=== PATIENT | male | born 1970 | race Two or more races ===

== ENCOUNTER 2021-12-15 23:57 | Inpatient (IN) | payer MEDICAID, OTHER ==
[~2021-12-15] VITALS: Ht 170.2 cm; Wt 97.5 kg
[2021-12-16] MEDS ORDERED: LORazepam 2MG/ML-1ML VIAL IM ONE (00:30)
[2021-12-16 01:06] LABS: Red Cell Distribution Width 13.3 % (11.8-14.3)
[2021-12-16 01:08] LABS: Basophils # (auto) 0.1 10 ^3/uL (0-0.2); Basophils % (auto) 0.7 % (0.0-2.0); Eosinophils # (auto) 0 10 ^3/uL (0-0.8); Eosinophils % (auto) 0.1 % (0.0-7.0); Hematocrit 50.7 % (41.0-53.0); Hemoglobin 17.9 g/dL (13.5-17.5); Lymphocytes # (auto) 1.2 10 ^3/uL (0.4-5.4); Mean Corpuscular Hemoglobin 32.6 pg (28.0-32.0); Mean Corpuscular Hgb Conc. 35.3 g/dL (32.0-36.0); Mean Corpuscular Volume 92.5 fL (80.0-100.0); Monocytes # (auto) 1.1 10 ^3/uL (0-1.3); Monocytes % (auto) 9.6 % (0.0-12.0); Neutrophils # (auto) 8.7 10 ^3/uL (1.6-8.6); Neutrophils % (auto) 78.6 % (37.0-80.0); Nucleated Red Blood Cells % 1.6 %; Red Blood Cells 5.49 10^6/uL (4.5-5.90)
[2021-12-16 01:23] LABS: Albumin 5.1 g/dL (3.4-5.0); BUN/Creatinine Ratio 18.9; Calcium 10.1 mg/dL (8.5-10.1); Potassium 4.6 mmol/L (3.5-5.1)
[2021-12-16 01:26] LABS: Total Protein 9.5 g/dL (6.4-8.2)
[2021-12-16] MEDS ORDERED: SODIUM CHLORIDE 0.9% 2,000 ML IV ONE (02:30)
[2021-12-16] MEDS ORDERED: SODIUM CHLORIDE 0.9% 1,000 ML IV ONE ×2 (02:30)
[2021-12-16] MEDS ORDERED: LORazepam 2MG/ML-1ML VIAL IV ONE (02:45)
[2021-12-16] MEDS ORDERED: HYDROcodone-ACET 5/325MG TAB PO PRN (03:30)
[2021-12-16] MEDS ORDERED: DOCUSATE SOD 100 MG CAP PO PRN (03:30)
[2021-12-16] MEDS ORDERED: METOPROLOL TARTRATE 25 MG TAB PO ONE (03:30)
[2021-12-16] MEDS ORDERED: ACETAMINOPHEN 325 MG TAB PO PRN (03:30)
[2021-12-16] MEDS ORDERED: MORPHINE SULFATE INJ 2 MG/ml SYRG IV PRN ×2 (03:30→05:30)
[2021-12-16] MEDS ORDERED: DEXTROSE (50%) 50ML SYRG IV PRN (03:30)
[2021-12-16] MEDS ORDERED: LORazepam 2MG/ML-1ML VIAL IV PRN (03:30)
[2021-12-16] MEDS ORDERED: IBUPROFEN 600 MG TAB PO PRN (03:30)
[2021-12-16] MEDS ORDERED: ONDANSETRON HCL 4 MG/2 ML VIAL IV PRN (03:30)
[2021-12-16] MEDS ORDERED: hydrALAZINE HCL 20 MG/ML VL IV PRN (03:30)
[2021-12-16] MEDS: SODIUM CHLORIDE 0.9% 1,000 ML IV SCH ×2 (03:43→22:09)
[2021-12-16 03:55] LABS: Basophils # (auto) 0.1 10 ^3/uL (0-0.2); Basophils % (auto) 0.9 % (0.0-2.0); Eosinophils # (auto) 0 10 ^3/uL (0-0.8); Eosinophils % (auto) 0.1 % (0.0-7.0); Hematocrit 43.1 % (41.0-53.0); Lymphocytes # (auto) 1.2 10 ^3/uL (0.4-5.4); Lymphocytes % (auto) 12.5 % (10.0-50.0); Mean Corpuscular Hemoglobin 32.6 pg (28.0-32.0); Mean Corpuscular Hgb Conc. 34.8 g/dL (32.0-36.0); Mean Corpuscular Volume 93.8 fL (80.0-100.0); Monocytes % (auto) 10.7 % (0.0-12.0); Neutrophils # (auto) 7.2 10 ^3/uL (1.6-8.6); Neutrophils % (auto) 75.8 % (37.0-80.0); Nucleated Red Blood Cells % 0.1 %; Red Blood Cells 4.59 10^6/uL (4.5-5.90); Red Cell Distribution Width 13.1 % (11.8-14.3); White Blood Cell 9.5 10^3/uL (4.4-10.8)
[2021-12-16 04:12] LABS: Albumin 3.9 g/dL (3.4-5.0); Calcium 8.1 mg/dL (8.5-10.1); Potassium 4.3 mmol/L (3.5-5.1)
[2021-12-16 04:18] LABS: BUN/Creatinine Ratio 22.1; Total Protein 7.5 g/dL (6.4-8.2)
[2021-12-16] MEDS ORDERED: NITROGLYCERIN 0.4 MG SL TAB SL PRN (05:30)
[2021-12-16] MEDS: InsuLIN REG 1unit/0.01ml Soln (100units/ml) SC SCH ×5 (06:58→22:03)
[2021-12-16] MEDS: ACCU-CHEK COMFORT CURVE STRIP VI SCH ×5 (06:58→21:51)
[2021-12-16] MEDS ORDERED: HEPARIN SODIUM (PORCINE) 5000 UNITS/ML 1ML VIAL SC SCH (10:00)
[2021-12-16] MEDS: FAMOTIDINE (10MG/ML) 2ML VL IV SCH ×2 (10:34→21:51)
[2021-12-16] MEDS: METOPROLOL TARTRATE 25 MG TAB PO SCH ×2 (10:35→21:51)
[2021-12-16 17:00] VITALS: BP 118/76
[2021-12-16 21:53] VITALS: BP 121/80
[2021-12-17 04:57] VITALS: BP 113/74
[2021-12-17] MEDS: ACCU-CHEK COMFORT CURVE STRIP VI SCH ×3 (06:19→17:00)
[2021-12-17] MEDS: InsuLIN REG 1unit/0.01ml Soln (100units/ml) SC SCH ×3 (06:19→17:00)
[2021-12-17 06:36] LABS: Potassium 4.3 mmol/L (3.5-5.1)
[2021-12-17 06:41] LABS: Albumin 3.4 g/dL (3.4-5.0); BUN/Creatinine Ratio 30.3; Basophils # (auto) 0 10 ^3/uL (0-0.2); Basophils % (auto) 0.8 % (0.0-2.0); Calcium 8.2 mg/dL (8.5-10.1); Eosinophils # (auto) 0.1 10 ^3/uL (0-0.8); Eosinophils % (auto) 1.9 % (0.0-7.0); Hematocrit 41.2 % (41.0-53.0); Hemoglobin 14.3 g/dL (13.5-17.5); Lymphocytes # (auto) 1.3 10 ^3/uL (0.4-5.4); Lymphocytes % (auto) 28.3 % (10.0-50.0); Mean Corpuscular Hemoglobin 32.3 pg (28.0-32.0); Mean Corpuscular Hgb Conc. 34.7 g/dL (32.0-36.0); Mean Corpuscular Volume 93.2 fL (80.0-100.0); Monocytes # (auto) 0.5 10 ^3/uL (0-1.3); Monocytes % (auto) 10.4 % (0.0-12.0); Neutrophils # (auto) 2.8 10 ^3/uL (1.6-8.6); Neutrophils % (auto) 58.6 % (37.0-80.0); Red Blood Cells 4.42 10^6/uL (4.5-5.90); Red Cell Distribution Width 13.2 % (11.8-14.3); White Blood Cell 4.7 10^3/uL (4.4-10.8)
[2021-12-17 06:43] LABS: Bilirubin, Total 1.4 mg/dL (0.2-1.0); Total Protein 6.8 g/dL (6.4-8.2)
[2021-12-17 08:30] VITALS: BP 111/72
[2021-12-17] MEDS ORDERED: LORA0.5T20 PO ×2 (09:31)
[2021-12-17] MEDS: FAMOTIDINE (10MG/ML) 2ML VL IV SCH (10:00)
[2021-12-17] MEDS: METOPROLOL TARTRATE 25 MG TAB PO SCH (12:28)
[2021-12-17] MEDS: SODIUM CHLORIDE 0.9% 1,000 ML IV SCH (12:50)
[2021-12-17 13:00] VITALS: BP 113/72
[2021-12-17 17:00] VITALS: BP 107/74
[2021-12-17 18:28] VITALS: BP 126/84
== END 2021-12-17 20:06 | disposition home or self-care (01) | DRG 422 ==
LOC: ER 23:57 → EDBD 23:57 → OVERFLOW 12-16 05:28 → TELE-WESTW 12-16 12:52
PROVIDERS: ADMIT Nurse Practitioner Family; ATTEND Family Medicine
DX: E86.0 Dehydration (principal); D72.829 Elevated white blood cell count, unspecified; F15.23 Other stimulant dependence with withdrawal; I10 Essential (primary) hypertension; R00.0 Tachycardia, unspecified; R79.89 Other specified abnormal findings of blood chemistry; Z20.822 Contact with and (suspected) exposure to COVID-19; F41.9 Anxiety disorder, unspecified
CPT/HCPCS: 36415; 71045; 80053; 82962; 83036; 83880; 84484; 85025; 93005; 96360; 96372; G0378; J1815; J3490

== ENCOUNTER 2021-12-27 00:28 | Emergency (ER) | payer MEDICAID ==
[~2021-12-27] VITALS: Ht 170.2 cm; Wt 89.8 kg
[~2021-12-27 00:28] MED LIST: LORA0.5T20 PO
[2021-12-27 00:47] VITALS: BP 152/95
== END 2021-12-27 08:56 | disposition left against medical advice (07) ==
LOC: ER 00:28
DX: R51.9 Headache, unspecified (principal); R42 Dizziness and giddiness; Z53.21 Procedure and treatment not carried out due to patient leaving prior to being seen by health care provider

== ENCOUNTER 2022-06-07 14:25 | Emergency (ER) | payer MEDICAID ==
[~2022-06-07] VITALS: Ht 167.6 cm; Wt 93.8 kg
[2022-06-07 14:25] VITALS: BP 145/86
== END 2022-06-08 00:04 | disposition left against medical advice (07) ==
LOC: ER 14:25
DX: M54.50 Low back pain, unspecified (principal); Z53.21 Procedure and treatment not carried out due to patient leaving prior to being seen by health care provider